=== PATIENT | male | born 1940 | race Two or more races ===

== ENCOUNTER 2020-02-14 08:54 | Emergency (ER) | payer OTHER ==
[~2020-02-14] VITALS: Ht 188 cm; Wt 107.0 kg
[~2020-02-14 08:54] MED LIST: ALBU90OI INH; Augmentin 875-1 EACH PO; Cough Syru100 MG/5 M PO; Prednisone20 MG PO
== END 2020-02-14 09:48 | disposition home or self-care (01) ==
LOC: ER 08:54
DX: M25.511 Pain in right shoulder (principal)
CPT/HCPCS: 99283

== ENCOUNTER 2020-11-05 10:03 | Emergency (ER) | payer OTHER ==
[~2020-11-05] VITALS: Ht 188 cm; Wt 99.8 kg
[2020-11-05 11:12] LABS: BASOPHILS ABSOLUTE AUTO 0.02 K/mm3 (0.00-0.23); BASOPHILS PERCENT AUTO 0 % (0-2); EOSINOPHILS PERCENT AUTO 0 % (0-6); Hematocrit 48.3 % (37.0-53.0); Hemoglobin 16.8 g/dL (13.5-17.5); IMMATURE GRAN ABSOLUTE AUTO 0.01 K/mm3 (0.00-0.10); IMMATURE GRAN PERCENT AUTO 0 % (0-1); LYMPHOCYTES ABSOLUTE AUTO 0.87 K/mm3 (0.84-5.20); LYMPHOCYTES PERCENT AUTO 19 % (21-46); MONOCYTES ABSOLUTE AUTO 0.49 K/mm3 (0.16-1.47); MONOCYTES PERCENT AUTO 10 % (4-13); Mean Corpuscular HGB 29.7 pg (26.0-34.0); Mean Corpuscular HGB Conc 34.8 g/dL (31.5-36.5); Mean Corpuscular Volume 85 fL (80-100); Mean Platelet Volume 8.8 fL (9.1-12.4); NEUTROPHILS ABSOLUTE AUTO 3.31 K/mm3 (1.96-9.15); NEUTROPHILS PERCENT AUTO 71 % (41-73); Platelet Count 166 K/mm3 (150-400); RDW Coefficient Variation 12.5 % (11.7-14.2); RDW Standard Deviation 39.4 fL (35.1-46.3); Red Blood Cell Count 5.66 M/mm3 (4.30-5.90)
[2020-11-05 11:35] LABS: Alanine Aminotransfer (ALT/SGP 68 U/L (12-78); Albumin, Blood 3.6 g/dL (3.4-5.0); Albumin/Globulin Ratio 0.9 (0.8-1.8); Alk Phos 73 U/L (50-136); Anion Gap 9 mmol/L (6-16); Aspartate Aminotrans (AST/SGOT 67 U/L (12-37); Bilirubin, Total 0.6 mg/dL (0.1-1.0); Blood Urea Nitrogen 17 mg/dL (8-24); Bun/Creatinine Ratio 15.5 (12.0-20.0); CO2, Blood 24 mmol/L (21-32); Calcium, Blood 8.7 mg/dL (8.5-10.1); Chloride, Blood 102 mmol/L (98-108); Glomerular Filtration Rate >60 (60-); Glucose, Blood 120 mg/dL (70-99); Potassium, Blood 4.3 mmol/L (3.5-5.5); Sodium, Blood 135 mmol/L (136-145); Total Protein, Blood 7.6 g/dL (6.4-8.2)
[2020-11-05] MEDS ORDERED: Acetaminophen500 MG PO (11:54)
== END 2020-11-05 12:33 | disposition home or self-care (01) ==
LOC: ER 10:03
PROVIDERS: Student in an Organized Health Care Education/Training Program
DX: U07.1 COVID-19 (principal); E86.0 Dehydration; E87.1 Hypo-osmolality and hyponatremia; Z85.038 Personal history of other malignant neoplasm of large intestine
CPT/HCPCS: 36415; 80053; 85025; 93005; 93010; 96360; 99285-25; A9270; J7030

== ENCOUNTER 2020-11-10 14:27 | Inpatient (IN) | payer OTHER ==
[~2020-11-10] VITALS: Ht 188 cm; Wt 99.8 kg
[~2020-11-10 14:27] MED LIST changes: +Acetaminophen500 MG PO
[2020-11-10] MEDS ORDERED: FISH OIL 1,0001 EAC8 PO (15:26)
[2020-11-10] MEDS ORDERED: FISH OIL PO (15:27)
[2020-11-10 15:40] LABS: Alanine Aminotransfer (ALT/SGP 46 U/L (12-78); Albumin/Globulin Ratio 0.6 (0.8-1.8); Alk Phos 77 U/L (50-136); Anion Gap 8 mmol/L (6-16); Aspartate Aminotrans (AST/SGOT 87 U/L (12-37); Bilirubin, Total 0.6 mg/dL (0.1-1.0); Blood Urea Nitrogen 20 mg/dL (8-24); Bun/Creatinine Ratio 19.6 (12.0-20.0); CO2, Blood 24 mmol/L (21-32); Calcium, Blood 9.4 mg/dL (8.5-10.1); Chloride, Blood 107 mmol/L (98-108); Creatinine, Blood 1.02 mg/dL (0.60-1.20); Globulin, Blood 4.9 g/dL (2.2-4.0); Glomerular Filtration Rate >60 (60-); Glucose, Blood 128 mg/dL (70-99); Potassium, Blood 4.2 mmol/L (3.5-5.5); Sodium, Blood 139 mmol/L (136-145); Total Protein, Blood 7.9 g/dL (6.4-8.2); Troponin I <0.015 ng/mL (0.000-0.040)
[2020-11-10 15:41] LABS: BASOPHILS ABSOLUTE AUTO 0.01 K/mm3 (0.00-0.23); BASOPHILS PERCENT AUTO 0 % (0-2); EOSINOPHILS PERCENT AUTO 0 % (0-6); Hematocrit 51.7 % (37.0-53.0); Hemoglobin 17.8 g/dL (13.5-17.5); IMMATURE GRAN ABSOLUTE AUTO 0.06 K/mm3 (0.00-0.10); IMMATURE GRAN PERCENT AUTO 1 % (0-1); LYMPHOCYTES ABSOLUTE AUTO 1.16 K/mm3 (0.84-5.20); LYMPHOCYTES PERCENT AUTO 13 % (21-46); MONOCYTES ABSOLUTE AUTO 0.48 K/mm3 (0.16-1.47); MONOCYTES PERCENT AUTO 5 % (4-13); Mean Corpuscular HGB Conc 34.4 g/dL (31.5-36.5); Mean Corpuscular Volume 87 fL (80-100); Mean Platelet Volume 8.9 fL (9.1-12.4); NEUTROPHILS ABSOLUTE AUTO 7.15 K/mm3 (1.96-9.15); NEUTROPHILS PERCENT AUTO 81 % (41-73); Platelet Count 282 K/mm3 (150-400); RDW Coefficient Variation 12.8 % (11.7-14.2); RDW Standard Deviation 40.3 fL (35.1-46.3); Red Blood Cell Count 5.94 M/mm3 (4.30-5.90); White Blood Cell Count 8.86 K/mm3 (4.00-11.30)
[2020-11-10 16:06] LABS: C-REACTIVE PROTEIN, EXT RANGE >19.000 mg/dL (0.000-0.300)
[2020-11-10 17:06] LABS: Base Excess Venous -0.3 mmol/L; Bicarbonate Venous 23.9 mmol/L (24.0-30.0); PCO2 Venous 35.1 mmHg (38-42); PO2 Venous 33.6 mmHg (38-42); pH Blood Venous 7.44 (7.34-7.37)
--- NOTE | 2020-11-10 20:13 | NUR ---
PT ARRIVED AT 1820 FROM ED VIA STRETCHER; AMBULATED TO BED SBA GOOD STRENGTH, STEADY GAIT. NRM 15L- SATS 91%. PLACED A OXYMIZER AT 15L FOR PT TO BE ABLE TO EAT HIS DINNER TRAY. PT ORIENTED TO ROOM SET UP AND SAFETY. PT IN GOOD SPIRITS ANSWERS ALL QUESTIONS APPROPIEATELY. RESP EVEN UNLABORED AT RATE 24, FAINT CX IN BASES. REMDEZIVIR INFURING FROM ED. REPORTED TO WELLS FOR NOCS TO COMPLETE ADMISSION ASSESSMENT AND HX.
[2020-11-11 05:11] LABS: BASOPHILS ABSOLUTE AUTO 0.01 K/mm3 (0.00-0.23); BASOPHILS PERCENT AUTO 0 % (0-2); EOSINOPHILS PERCENT AUTO 0 % (0-6); Hematocrit 48.3 % (37.0-53.0); Hemoglobin 16.5 g/dL (13.5-17.5); IMMATURE GRAN ABSOLUTE AUTO 0.04 K/mm3 (0.00-0.10); IMMATURE GRAN PERCENT AUTO 1 % (0-1); LYMPHOCYTES ABSOLUTE AUTO 0.99 K/mm3 (0.84-5.20); LYMPHOCYTES PERCENT AUTO 13 % (21-46); MONOCYTES PERCENT AUTO 5 % (4-13); Mean Corpuscular HGB 29.7 pg (26.0-34.0); Mean Corpuscular HGB Conc 34.2 g/dL (31.5-36.5); Mean Corpuscular Volume 87 fL (80-100); Mean Platelet Volume 8.9 fL (9.1-12.4); NEUTROPHILS ABSOLUTE AUTO 6.06 K/mm3 (1.96-9.15); NEUTROPHILS PERCENT AUTO 81 % (41-73); Platelet Count 292 K/mm3 (150-400); RDW Coefficient Variation 12.8 % (11.7-14.2); RDW Standard Deviation 41.1 fL (35.1-46.3); Red Blood Cell Count 5.56 M/mm3 (4.30-5.90)
[2020-11-11 05:39] LABS: Anion Gap 5 mmol/L (6-16); Blood Urea Nitrogen 25 mg/dL (8-24); Bun/Creatinine Ratio 28.6 (12.0-20.0); CO2, Blood 26 mmol/L (21-32); Calcium, Blood 8.9 mg/dL (8.5-10.1); Chloride, Blood 110 mmol/L (98-108); Creatinine, Blood 0.88 mg/dL (0.60-1.20); Ferritin, Serum 1784 ng/mL (26-388); Glomerular Filtration Rate >60 (60-); Glucose, Blood 156 mg/dL (70-99); Lactate Dehydrogenase (Ld),Bld 474 U/L (100-240); Magnesium, Blood 2.4 mg/dL (1.6-2.4); Phosphorus, Blood 2.6 mg/dL (2.5-4.9); Potassium, Blood 4.3 mmol/L (3.5-5.5); Sodium, Blood 141 mmol/L (136-145)
--- NOTE | 2020-11-11 07:42 | NUR ---
SHIFT SUMMARY: PLACED ON AIRVO DUE TO SATS LOW 80'S ON LEFT SIDE. HAS SOME COGNITIVE DEFICITS, SLOW TO RESPOND, DOES FOLLOW DIRECTION. DENIES PAIN. LUNG SOUNDS ARE COURSE T/O. DYSPNEA, PULSE OX ON. NON-PRODUCTIVE COUGH. INCONTIENT OF URINE. FORGETS TO USE CALL LIGHT. HE IS ON 30L 95%O2 SATS MID 90'S. HAD TO KEEP REMINDING HIM TO KEEP AIRVO ON AND LAY ON SIDE. DYSPENIC. BED ALARM IS ON. CALL LIGHT IN REACH.
--- NOTE | 2020-11-11 13:00 | NUR ---
RN NOTE: PT TO BE TRANSFERRED TO [facility]. REPORT CALLED TO [facility] ICU PRESALES CONSULTANT. PT TRANSFERRED VIA [facility] BY [facility].
--- NOTE | 2020-11-11 13:45 | NUR ---
pt transferred with 6 lpm via nc and non re-breather at 100% per RT rafia recommendation.
== END 2020-11-11 13:22 | DRG 177 ==
LOC: ER 14:27 → MEDS 16:47
PROVIDERS: Emergency Medicine; Student in an Organized Health Care Education/Training Program; ADMIT Hospitalist
PROC: 3E0333Z Introduction of Anti-inflammatory into Peripheral Vein, Percutaneous Approach (ICD-10-PCS; principal; 2020-11-10)
PROC: XW033E5 Introduction of Remdesivir Anti-infective into Peripheral Vein, Percutaneous Approach, New Technology Group 5 (ICD-10-PCS; 2020-11-10)
PROC: 5A0935A Assistance with Respiratory Ventilation, Less than 24 Consecutive Hours, High Flow/Velocity Cannula (ICD-10-PCS; 2020-11-10)
PROC: 8E0ZXY6 Isolation (ICD-10-PCS; 2020-11-10)
DX: U07.1 COVID-19 (principal); J12.82 Pneumonia due to coronavirus disease 2019; J96.01 Acute respiratory failure with hypoxia; I10 Essential (primary) hypertension; F12.90 Cannabis use, unspecified, uncomplicated; Z60.2 Problems related to living alone; Z85.038 Personal history of other malignant neoplasm of large intestine
CPT/HCPCS: 36415; 71045; 80048; 80053; 82728; 82803; 83615; 83735; 83880; 84100; 84145; 84484; 85025; 85379; 86140; 93005; 93010; 94762; 96374; 96375; 99285-25; J1100; J1650